=== PATIENT | male | born 2005 | race Caucasian/White ===

== ENCOUNTER 2025-08-05 17:38 | Emergency (ER) | payer SELFPAY ==
[~2025-08-05 17:38] MED LIST: AMOXIL250 MG/5 M PO; AUGMENTIN ES-6100 ML PO; CLARITIN5 MG/5 ML PO; CORTISPORIN 1%-10 M1 OT; LIDEX0.05% T; MOTRIN100 MG/5 M PO; PRELONE5 MG/5 ML PO; TRIMOX,POL250 MG/5 M PO; TYLENOL W/ CODEI5 ML PO
[2025-08-05] MEDS ORDERED: SEPTDS PO (18:51)
== END 2025-08-05 18:54 | disposition home or self-care (01) ==
LOC: ED 17:38
DX: L60.0 Ingrowing nail (principal); M79.675 Pain in left toe(s); J45.909 Unspecified asthma, uncomplicated